=== PATIENT | male | born 1975 | race Hispanic/Latino ===

== ENCOUNTER → 2017-10-14 | Outpatient (CLI) | payer BC ==
--- NOTE | 2017-10-14 16:35 | Diagnostic Imaging Report ---
PROCEDURE:ABDOMINAL ULTRASOUND COMPARISON:None. INDICATIONS:lymphadenitis, right lower quadrant/right groin pain for approximately one month FINDINGS: Liver: 15 cm. The echotexture is increased. No focal mass. Main portal vein: 0.9 cm. Hepatopedal flow. Gallbladder: Present and is normal. No gallstones or gallbladder wall thickening. Common Bile Duct: 0.6 cm. No echogenic filling defect. Sonographic Patterson's sign: None Right kidney: 10.8 cm. No solid or cystic mass, echogenic calculi, or hydronephrosis. Normal parenchymal echogenicity. Left kidney: 11.4 cm. No solid or cystic mass, echogenic calculi, or hydronephrosis. Normal parenchymal echogenicity. Spleen: 11.5 cm. Normal echotexture. No mass. Pancreas: Visualized portions are increased in echotexture without mass or ductal dilatation. Inferior vena cava: Normal. Aorta: Normal. Ascites: None. Dedicated sonographic interrogation to the right and left groin demonstrates no evidence of mass or hernia. No lymphadenopathy. CONCLUSION: 1. Increased hepatic echotexture suggesting steatosis. 2. Increased pancreas echotexture consistent with lipomatosis. 3. Normal gallbladder and biliary tree. 4. No inguinal lymphadenopathy. Dictated by: Ryder Mojica M.D. on 10/14/2017 at 16:35 Electronically approved by: Ryder Mojica M.D. on 10/14/2017 at 16:35
== END | disposition home or self-care (01) ==
LOC: US 10:34
PROVIDERS: ATTEND Internal Medicine
DX: I88.9 Nonspecific lymphadenitis, unspecified (principal)
CPT/HCPCS: 76700